=== PATIENT | female | born 1975 | race Caucasian/White ===

== ENCOUNTER 2017-03-23 08:32 | Emergency (ER) | payer MEDICAID ==
[~2017-03-23] VITALS: Ht 157.5 cm; Wt 59.0 kg
[~2017-03-23 08:32] MED LIST: ADVIL; MYLANTA; RABEPRAZOLE 20 MG
[2017-03-23 08:54] VITALS: BP 121/78
[2017-03-23] MEDS ORDERED: IPRATROPIUM BROMIDE (0.02%) 0.5MG/2.5ML NEB HHN STA (10:20)
[2017-03-23] MEDS ORDERED: ALBUTEROL (0.083%) 2.5MG/3ML NEB HHN STA (10:20)
[2017-03-23] MEDS ORDERED: PREDNISONE 20MG TABLET PO STA (10:20)
[2017-03-23] MEDS ORDERED: ACETAMINOPHEN 325MG TABLET PO ONE (10:30)
== END 2017-03-23 11:57 | disposition home or self-care (01) ==
LOC: ER 08:40
DX: J06.9 Acute upper respiratory infection, unspecified (principal)
CPT/HCPCS: 81025; 93005; 94640; 99284; J7512; J7611